=== PATIENT | female | born 1960 | race Caucasian/White ===

== ENCOUNTER 2022-08-13 14:34 | Emergency (ER) | payer BC, SELFPAY ==
[2022-08-13 14:38] VITALS: BP 160/95; PULSE 63; RESP 16; TEMP 37; O2SAT 96; BMI 33.4
--- NOTE | 2022-08-13 14:58 | W.ED.BACK ---
HPI - Back Pain/Injury General: Chief Complaint: Back Pain/Injury Stated Complaint: pain in the back, all right side and numbness Time Seen by Provider: 08/13/22 14:55 Source: patient Mode of arrival: ambulatory Limitations: no limitations History of Present Illness: 61-year-old female presents to the ER today for low back pain for the last couple of days. Patient reports she was told a while ago that she had degenerative disc disease of her lower back however she never had any issues. Patient reports a few days ago she noticed her back started bothering her and it has continued to worsen. Patient reports over the last 24 hours she has pain radiating from her groin into her back and down her leg to the tip of her toes. Patient reports some burning and numb pain in the foot of the right side. Patient reports lying hurts worse than standing. She is not taking anything other than [id number] meds for this. Patient has never had an MRI of the low back. Patient denies any loss of bowel or bladder control. Denies any neurological deficits. Review of Systems General: Reports: 10 or more systems reviewed and unremarkable except in HPI and below Physical Exam Const: COMMON NORMALS: average body habitus, patient oriented x3, no limitations, healthy appearing, alert and well nourished OTHER: appears uncomfortable HENMT: COMMON NORMALS: moist oral mucous membranes Neck/C-Spine: COMMON NORMALS: full ROM Resp: COMMON NORMALS: normal respiratory effort EFFORT & INSPECTION: Yes able to speak in complete sentences Cardio: COMMON NORMALS: regular rate and regular rhythm RATE: regular rate RHYTHM: regular rhythm Back/Pelvis: OTHER: Patient has point tenderness of the right SI joint in addition to mild tenderness of the lumbar vertebrae and mild tenderness of the paraspinal muscles bilaterally. No obvious deformity. Patient unable to get comfortable lying down however standing seems to help. Extremity: COMMON NORMALS: normal to inspection and full ROM Neuro: COMMON NORMALS: patient oriented x3 SENSORIUM/ORIENTATION: Yes alert Psych: COMMON NORMALS: mental status grossly normal, Normal thought process present and cooperative THOUGHT PROCESS: Normal thought process present Skin: COMMON NORMALS: no rashes or lesions noted and no wounds GENERAL SKIN EXAM: no rashes or lesions noted Course ED course: 61-year-old female presents to the ER today for low back pain for the last couple of days. Patient reports she was told a while ago that she had degenerative disc disease of her lower back however she never had any issues. Patient reports a few days ago she noticed her back started bothering her and it has continued to worsen. Patient reports over the last 24 hours she has pain radiating from her groin into her back and down her leg to the tip of her toes. Patient reports some burning and numb pain in the foot of the right side. Patient reports lying hurts worse than standing. She is not taking anything other than [id number] meds for this. Patient has never had an MRI of the low back. Patient denies any loss of bowel or bladder control. Denies any neurological deficits. Patient had recent CT therefore an x-ray is not needed at this time. No new injury has occurred. Based on exam, patient is experiencing right-sided sciatica. This was discussed with patient. Vital Signs: Vital signs: Vital Signs Temperature 98.6 F 08/13/22 14:38 Pulse Rate 63 08/13/22 14:38 Respiratory Rate 16 08/13/22 14:38 Blood Pressure 160/95 08/13/22 14:38 Pulse Oximetry 96 08/13/22 14:38 Oxygen Delivery Me thod 08/13/22 14:38 MDM - Back Pain/Injury Medical Decision Making 61-year-old female presents the ER today for acute low back pain. Patient reports she has a known history of degenerative disc disease however this feels different. Patient has radiating pain down her right leg into her toes along with some numbness and burning. Patient has no loss of bowel or bladder control. Imaging is not necessary at this time as patient had recent CT therefore an x-ray will not show us anything different. Patient likely needs advanced imaging of an MRI. Patient reports that she is going back home on Tuesday and can discuss that with her doctor there. At this time we will do Flexeril and Toradol injection in the ER for pain. We will send patient home with Medrol Dosepak, Robaxin, and ketorolac. Recommended rest and stretching. Warm, moist heat recommended. Follow-up as discussed. Return to the ER with any new or worsening symptoms. Patient verbalized understanding was in agreement with the treatment plan. Critical Care Time Critical Care Time: Critical Care Time: No Discharge Plan Discharge Patient Disposition: Home Clinical Impression: Sciatica Qualifiers: Laterality: right Qualified Code(s): M54.31 - Sciatica, right side Condition: Stable Prescriptions: New ketorolac 10 mg tablet 10 mg PO Q8H PRN (Reason: pain) 3 Days Qty: 12 0RF methocarbamol 750 mg tablet 750 mg PO Q8H Qty: 21 0RF Medrol (Raphael) 4 mg tablets,dose pack See Rx Instructions .ROUTE .COMPLEX Qty: 21 0RF Rx Instructions: orally per package directions Discharge Orders: Discharge ED (Routine); Ordered 08/13/22 Ordered By: Zayra Parrish Discharge Diet: Usual diet Discharge Activity: Increase activity as tolerated Patient Instructions: Opioid Safety, Pain Management Activity Restrictions/Additional Instructions: Take ketorolac, Robaxin, and Medrol Dosepak as prescribed. Warm, moist heat recommended. Topical muscle rub recommended but do not use with heat. Rest and stretching recommended. Follow-up with PCP in 7 to 10 days if no improvement. Return to the ER with any new or worsening symptoms including neurological deficits such as loss of bowel or bladder control. Coding Level of Care Code ED Materials Specialist for Carlie Bautista
[2022-08-13 15:25] VITALS: BP 160/95; PULSE 63; RESP 16; TEMP 37; O2SAT 96
[2022-08-13] MEDS: ketorolac 30 mg/mL INJ IM (15:28)
[2022-08-13] MEDS: orphenadrine 30 mg/mL Inj 2 mL 60 MG IM (15:28)
== END 2022-08-13 15:28 | disposition home or self-care (01) ==
PROVIDERS: Emergency Provider Physician Assistant
DX: M54.31 Sciatica, right side (principal)
CPT/HCPCS: 96372; 99284; J1885; J2360

== ENCOUNTER 2024-03-23 17:46 | Emergency (ER) | payer OTHER, SELFPAY ==
--- NOTE | 2024-03-23 17:52 | CTR_ITS ---
PROCEDURE INFORMATION: Exam: CT Head Without Contrast Exam date and time: 03/23/2024 6:23 PM Age: 63 years old Clinical indication: Injury or trauma; Fall; Additional info: Trauma/fall TECHNIQUE: Imaging protocol: Computed tomography of the head without contrast. Axial, coronal and sagittal reformatted images were created and reviewed. Radiation optimization: All CT scans at this facility use at least one of these dose optimization techniques: automated exposure control; mA and/or kV adjustment per patient size (includes targeted exams where dose is matched to clinical indication); or iterative reconstruction. COMPARISON: CT cervical spin wo con* [id number] 03/23/2024 6:23 PM RADIATION DOSE METRICS: Total DLP (mGy-cm): 1013.5 FINDINGS: Brain: Focal area of right temporal encephalomalacia. Subtle, patchy areas of hypoattenuation in the periventricular and subcortical white matter, nonspecific but suggestive of mild chronic small vessel ischemic disease. Focal, well-circumscribed hypodensities in the left basal ganglia and left cerebellum, consistent with chronic lacunar infarcts. No CT evidence of acute intracranial hemorrhage or acute territorial infarction. No significant mass effect or midline shift. Basal cisterns patent. Cerebral ventricles: Prominence of the cortical sulci, cisterns and ventricular system, consistent with cerebral and cerebellar volume loss. Paranasal sinuses: Left ethmoid/left nasal passage polyp versus mucous retention cyst. No fluid levels. Mastoid air cells: Grossly unremarkable. Bones: No acute osseous abnormality. Postoperative changes associated with prior right temporoparietal craniotomy. Soft tissues: Grossly unremarkable. CT/CT head wo con* [id number] IMPRESSION: 1. No CT evidence of acute intracranial pathology. 2. Additional findings, as above.
--- NOTE | 2024-03-23 17:52 | CTR_ITS ---
PROCEDURE INFORMATION: Exam: CT Cervical Spine Without Contrast Exam date and time: 03/23/2024 6:23 PM Age: 63 years old Clinical indication: Injury or trauma; Fall; Other: Pain; Additional info: Trauma/fall TECHNIQUE: Imaging protocol: Computed tomography of the cervical spine without contrast. Axial, coronal and sagittal reformatted images were created and reviewed. Radiation optimization: All CT scans at this facility use at least one of these dose optimization techniques: automated exposure control; mA and/or kV adjustment per patient size (includes targeted exams where dose is matched to clinical indication); or iterative reconstruction. COMPARISON: CT head wo con* [id number] 03/23/2024 6:23 PM RADIATION DOSE METRICS: Total DLP (mGy-cm): 585.8 FINDINGS: Bones: Osteopenia. Normal cervical lordosis. No CT evidence of acute fracture, dislocation or subluxation. Mild anterolisthesis of C2 on C3. Alignment otherwise anatomic. Mild dextroscoliosis. Vertebral body heights maintained. Mild multilevel degenerative changes, characterized by disc space narrowing, osteophytosis and uncovertebral and facet joint hypertrophy. Mild multilevel spinal canal and neural foraminal narrowing. Lungs: Lung apices are normal. Soft tissues: Grossly unremarkable. CT/CT cervical spin wo con* [id number] [address]ION: 1. No CT evidence of acute cervical spine traumatic injury. 2. Additional findings, as above.
[2024-03-23 18:08] VITALS: BP 147/95; PULSE 60; RESP 18; TEMP 36.6; O2SAT 98; BMI 29.8
--- NOTE | 2024-03-23 21:28 | W.ED.FALL ---
HPI - Fall General: Chief Complaint: Fall Stated Complaint: fall hit head Time Seen by Provider: 03/23/24 21:16 Source: patient and family Mode of arrival: wheelchair Limitations: no limitations History of Present Illness: Patient is a 63-year-old female presents to ED today following a fall. Patient states she was walking up a flight of stairs when her right leg gave out as she states that sometimes does following a back surgery she had several months ago. She states she struck the back of her head. No LOC. She does complain of some minor neck pain as well. She is not on anticoagulation. She feels mildly dizzy. No other complaints at this time. No other injuries that she states she sustained during the fall. He has been ambulatory without difficulty since the incident. MD complaint: fall Onset (ago): hour(s) Fall from: down stairs (#) Fall witnessed: no Place fall occurred: home Loss of consciousness: None Prolonged down time: no Symptoms prior to fall: none Context: tripped/slipped Location of injury: head and neck Associated symptoms-after fall: Reports headache(s), neck pain and other (dizzy); Denies abdominal pain, chest pain, hematuria or lightheadedness Review of Systems Eyes: Denies: change in vision, blurry vision, photophobia, eye discharge, floaters or seeing flashes ENMT: Denies: throat pain, odynophagia, ear or mastoid pain, ear discharge, nasal discharge, epistaxis or sinus pain Card: Denies: chest pain, palpitations, lightheadedness, syncope or pre-syncope Resp: Denies: dyspnea or pain on inspiration GI: Denies: abdominal pain : Denies: flank pain or hematuria Musc: Reports: neck pain; Denies: back pain, extremity pain or joint pain Neuro: Reports: headache(s) and dizziness; Denies: numbness in extremities, weakness in extremities or sensory changes Physical Exam Const: COMMON NORMALS: no acute distress, average body habitus, patient oriented x3, no limitations, healthy appearing, alert and well nourished GENERAL APPEARANCE: cooperative ORIENTATION/CONSCIOUSNESS: Yes awake, Yes oriented to person, Yes oriented to place and Yes oriented to time HENMT: COMMON NORMALS: normocephalic and TM's normal bilaterally HEAD & SCALP: normal to inspection, normocephalic and hematoma (posterior scalp/vertex); no Hess's sign and no raccoon eyes FACE & SINUS: normal facial exam TYMPANIC MEMBRANE: TM's normal bilaterally MOUTH: other (no intraoral injuries noted) Eye: COMMON NORMALS: Equal, round and reactive pupils present and EOMs intact bilaterally GENERAL EYE: appearance normal, both eyes and all related structures and normal light reflex PUPIL: Yes Equal, round and reactive pupils present DIRECT OPHTHALMOSCOPY: Yes normal light reflex Neck/C-Spine: COMMON NORMALS: full ROM GENERAL: Yes normal visual inspection CERVICAL SPINE: Yes cervical ROM normal, No pain with cervical ROM, No Cervical spine tenderness, No step off deformity and No Paracervical muscle tenderness OTHER: c-collar removed after negative CT Chest: COMMONS NORMALS: normal inspection of the chest and normal palpation of entire chest wall Resp: COMMON NORMALS: normal respiratory effort and clear to auscultation bilaterally AUSCULTATION: clear to auscultation bilaterally Cardio: COMMON NORMALS: regular rate and regular rhythm RATE: regular rate RHYTHM: regular rhythm GI: COMMON NORMALS: Normal to inspection, nondistended, normoactive bowel sounds present, Soft to palpation, non-tender, No hepatosplenomegaly present and no masses INSPECTION: Yes normal to inspection and No abdominal wall ecchymosis AUSCULTATION: Yes normoactive bowel sounds PALPATION: Yes Soft to palpation and Yes No hepatosplenomegaly present Back/Pelvis: COMMON NORMALS: thoracic and lumbar spine normal to inspection, no thoracic nor lumbar tenderness and thoraco-lumbar ROM normal Extremity: COMMON NORMALS: normal to inspection and full ROM GENERAL: Yes normal exam except as noted Neuro: MARY LOU COMA SCALE: document GCS findings Mary [place] coma scale eye opening: Spontaneous [place] coma scale verbal response: Orientated Mary [place] coma scale motor response: Obey commands Mary Lou coma scale total score: 15 COMMON NORMALS: patient oriented x3, CN's II-XII intact bilaterally, moves all extremities, no focal motor deficits, no sensory deficits noted and gait normal SENSORIUM/ORIENTATION: Yes alert, Yes oriented to person, Yes oriented to place and Yes oriented to time SPEECH: speech normal GAIT: Yes Normal gait present Skin: COMMON NORMALS: no rashes or lesions noted GENERAL SKIN EXAM: no rashes or lesions noted TRAUMA: no lacerations or abrasions Course Vital Signs: Vital signs: Vital Signs Temperature 97.8 F 03/23/24 18:08 Pulse Rate 58 L 03/23/24 21:41 Respiratory Rate 18 03/23/24 21:41 Blood Pressure 159/95 03/23/24 21:41 Pulse Oximetry 97 03/23/24 21:41 Oxygen Delivery Me thod Room Air 03/23/24 21:40 MDM - Fall Medical Decision Making Patient's head and cervical CT showing no acute injuries. She will be allowed discharge. Return to ED precautions given. Medical Records I reviewed the patient's medical records. Lab Data Radiology Impressions Cervical Spine CT 03/23/24 17:[address]: [address] evidence of acute cervical spine traumatic injury. 2. Additional findings, as above. Head CT 03/23/24 17:[address]: 1[address] evidence of acute intracranial pathology. 2. Additional findings, as above. Laboratory Results Urine Color Cancelled 03/23/24 19:20 Urine Appearance Cancelled 03/23/24 19:20 Urine pH Cancelled 03/23/24 19:20 Ur Specific [place] Cancelled 03/23/24 19:20 Urine Protein Cancelled 03/23/24 19:20 Urine Glucose (UA) Cancelled 03/23/24 19:20 Urine Ketones Cancelled 03/23/24 19:20 Urine Blood Cancelled 03/23/24 19:20 Urine Nitrate Cancelled 03/23/24 19:20 Urine Bilirubin Cancelled 03/23/24 19:20 Prot Sulfosalicylic Acd Cancelled 03/23/24 19:20 Urine Urobilinogen Cancelled 03/23/24 19:20 Ur Leukocyte Esterase Cancelled 03/23/24 19:20 Urine RBC Cancelled 03/23/24 19:20 Urine WBC Cancelled 03/23/24 19:20 Ur Squamous Epith Cells Cancelled 03/23/24 19:20 Ur Transition Epith Cell Cancelled 03/23/24 19:20 Ur Renal Epithelial Cell Cancelled 03/23/24 19:20 Calcium Oxalate Crystal Cancelled 03/23/24 19:20 Uric Acid Crystals Cancelled 03/23/24 19:20 Triple Phos Crystals Cancelled 03/23/24 19:20 Other Crystals Cancelled 03/23/24 19:20 Amorphous Sediment Cancelled 03/23/24 19:20 Urine Bacteria Cancelled 03/23/24 19:20 Hyaline Casts Cancelled 03/23/24 19:20 Fine Granular Casts Cancelled 03/23/24 19:20 Coarse Granular Casts Cancelled 03/23/24 19:20 RBC Casts Cancelled 03/23/24 19:20 Other Casts Cancelled 03/23/24 19:20 Urine Mucus Cancelled 03/23/24 19:20 Urine Trichomonas Cancelled 03/23/24 19:20 Urine Yeast Cancelled 03/23/24 19:20 Urine Sperm Cancelled 03/23/24 19:20 Ur Oval Fat Bodies Cancelled 03/23/24 19:20 All radiology interpretation(s) finalized by discharge Discharge Plan Discharge Patient Disposition: Home Clinical Impression: Fall from stairs Hematoma of scalp Qualifiers: Encounter type: initial encounter Qualified Code(s): S00.03XA - Contusion of scalp, initial encounter Condition: Stable Prescriptions: No Action methocarbamol 750 mg tablet 750 mg PO Q8H Qty: 21 0RF Medrol (Raphael) 4 mg tablets,dose pack See Rx Instructions .ROUTE .COMPLEX Qty: 21 0RF Rx Instructions: orally per package directions Discharge Orders: Discharge ED (Routine); Ordered 03/23/24 Ordered By: Meme Green Coding Level of Care Code ED Transfer Car Operator for Chg Lily
[2024-03-23 21:40] VITALS: BP 159/95; PULSE 58; RESP 18; O2SAT 97
[2024-03-23 21:41] VITALS: BP 159/95; PULSE 58; RESP 18; O2SAT 97
== END 2024-03-23 21:33 | disposition home or self-care (01) ==
PROVIDERS: Emergency Provider Physician Assistant
DX: S00.03XA Contusion of scalp, initial encounter (principal); W10.8XXA Fall (on) (from) other stairs and steps, initial encounter
CPT/HCPCS: 70450; 72125; 99284